=== PATIENT | male | born 1955 | race Caucasian/White ===

== ENCOUNTER → 2017-04-28 | Outpatient (CLI) | payer OTHER ==
--- NOTE | 2017-04-28 10:37 | DIAGNOSTIC IMAGING REPORT ---
(CHEST) THORAX WITHOUT CT DOSE: 430.58 mGy.cm HISTORY: Pulmonary nodules MULTIPLE PULMONARY NODULES TECHNIQUE: Multiaxial CT images of the chest were performed without contrast. A dose lowering technique was utilized adhering to the principles of ALARA. COMPARISON: 11/12/2015 FINDINGS: The nodular densities previously described are considered generally stable in terms of overall size and configuration. There are no new or interval nodules. Several nodules demonstrate what is potentially early peripheral calcification. Possibility of granulomatous changes in etiology must be considered. Mediastinal and hilar regions show no significant adenopathy. IMPRESSION: 1. Stable bilateral parenchymal nodules. 2. At least 2 of the nodule appears described now show peripheral faint calcification which may indicate early benign granulomatous-type change. 3. One additional 1 year follow-up is suggested. The above report was generated using voice recognition software. It may contain grammatical, syntax or spelling errors. Electronically signed by: Jitendra Levi M.D. 04/28/2017 10:36 AM Dictated Date/Time: 04/28/2017 10:26 AM
== END | disposition home or self-care (01) ==
LOC: C.CTS 09:44
PROVIDERS: ATTEND Physician Assistant
DX: R91.8 Other nonspecific abnormal finding of lung field (principal)